=== PATIENT | male | born 1975 | race Caucasian/White ===

== ENCOUNTER 2020-12-06 03:38 | Observation (INO) ==
[2020-12-06] MEDS ORDERED: Piperacillin/Tazobactam 3.375 GM in Water for inj. (sterile) 20 ML IVP ONE (04:09)
[2020-12-06] MEDS ORDERED: 0.9 % Sodium Chloride 500 ML IVC ONE (04:11)
[2020-12-06] MEDS ORDERED: Insulin Human Regular 10 UNIT in 0.9 % Sodium Chloride 10 ML IV ONE (04:12)
[2020-12-06] MEDS: 0.9 % Sodium Chloride 1,000 ML IVC SCH ×2 (04:47→06:39)
[2020-12-06 04:57] LABS: Basophils # 0.1 K/mcL (0.0-0.2); Basophils % 0.4 %; Eosinophils # 0.1 K/mcL (0.0-0.6); Hematocrit 43.7 % (37.5-50.1); Hemoglobin 14.8 g/dL (12.9-16.9); Immature Granulocytes % 0.2 % (0-4); Lymphocytes # 2.7 K/mcL (0.6-4.6); Lymphocytes % 21.4 %; Mean Corpuscular HGB Conc 33.9 g/dL (31.6-35.5); Mean Corpuscular Hemoglobin 30.2 pg (28.0-33.3); Mean Corpuscular Volume 89.2 fL (83.0-100.0); Mean Platelet Volume 10.8 fL (9.4-12.4); Monocytes % 8.4 %; Neutrophils # 8.5 K/mcL (1.6-8.9); Platelet Count 254 K/mcL (140-400); Red Cell Distribution Width 13.4 % (11.5-14.5); Segmented Neutrophils % 68.6 %; White Blood Count 12.4 K/mcL (4.3-11.1)
[2020-12-06 05:09] LABS: INR 0.9; Prothrombin Time 10.9 Seconds (9.4-12.1)
[2020-12-06 05:12] LABS: Activated Partial Thrombo Time 30.5 Seconds (26.0-36.0)
[2020-12-06 05:16] LABS: Bilirubin,Urine Negative (Negative); Blood,Urine Negative (Negative); Clarity,Urine Clear (Clear); Color,Urine Yellow (Yellow); Glucose,Urine (UA) >=1000 mg/dL (Normal); Ketones,Urine Negative (Negative); Leukocyte Esterase,Urine Negative (Negative); Nitrite,Urine Negative (Negative); Protein,Urine Negative (Neg-Trace); Specific Gravity,Urine 1.015 (1.010-1.025); Urobilinogen,Urine Normal (Normal)
[2020-12-06 05:18] LABS: Alanine Aminotransferase 132 Units/L (7-52); Albumin 3.6 g/dL (3.5-5.7); Albumin/Globulin Ratio 1.1 (1.1-2.2); Alkaline Phosphatase 73 Units/L (34-104); Aspartate Amino Transferase 57 Units/L (13-39); BUN/Creatinine Ratio 18 (6-26); Bilirubin,Direct 0.1 mg/dL (0.0-0.2); Bilirubin,Indirect 0.5 mg/dL (0.0-1.0); Bilirubin,Total 0.6 mg/dL (0.3-1.0); Blood Urea Nitrogen 18 mg/dL (6-20); Calcium 9.2 mg/dL (8.6-10.3); Carbon Dioxide 27 mEq/L (23-29); Chloride 97 mEq/L (98-107); Globulin 3.3 g/dL (2.4-3.5); Glucose 625 mg/dL (70-105); Magnesium 1.9 mg/dL (1.6-2.6); Osmolality,Calculated 305 (280-300); Phosphorous 3.7 mg/dL (2.7-4.5); Sodium 132 mEq/L (136-145); Total Protein 6.9 g/dL (6.4-8.9); eGFR For African Americans > 60 (> 60); eGFR For Non-African Americans > 60 (> 60)
[2020-12-06 05:37] LABS: Troponin I < 0.03 ng/mL (< 0.04)
[2020-12-06] MEDS ORDERED: *HR* Dextrose 50 % in Water (Syg) 50 ML SYRINGE IVP PRN ×2 (06:31→09:58)
[2020-12-06] MEDS ORDERED: Ondansetron ODT 4 MG TAB.RAPDIS SL PRN (06:31)
[2020-12-06] MEDS ORDERED: Ibuprofen 400 MG TABLET PO PRN (06:31)
[2020-12-06] MEDS ORDERED: Dextrose Gel 15 GM/37.5 ML TUBE PO PRN ×4 (06:31→09:58)
[2020-12-06] MEDS ORDERED: D5% in Water 1,000 ML IVC PRN ×2 (06:31→09:58)
[2020-12-06] MEDS ORDERED: Naloxone 0.4 MG/ML INJ IVP PRN (06:31)
[2020-12-06] MEDS ORDERED: Insulin LISPRO 300 UNITS/3 ML VIAL SUBQ SCH (07:30)
[2020-12-06] MEDS ORDERED: *HR* Metformin 500 MG TABLET PO SCH (09:00)
[2020-12-06] MEDS: lisinopriL 20 MG TABLET PO SCH (09:38)
[2020-12-06] MEDS: Insulin LISPRO 300 UNITS/3 ML VIAL SUBQ SCH ×4 (11:11→21:00)
[2020-12-06] MEDS: Piperacillin/Tazobactam 3.375 GM in 0.9 % Sodium Chloride Mini Bag 100 ML IVPB SCH ×2 (12:29→21:00)
[2020-12-06 14:13] LABS: Estimated Average Glucose 266 mg/dl; Hemoglobin A1C 10.9 %
[2020-12-06] MEDS: *HR* HYDROcodone/Acet 5/325 mg TABLET PO PRN (16:42)
[2020-12-06 17:50] LABS: Hepatitis B Surface Antigen Nonreactive (Nonreactive)
[2020-12-06 18:21] LABS: Hepatitis B Core IgM Nonreactive (Nonreactive)
[2020-12-06 18:24] LABS: Hepatitis A Antibody IgM Nonreactive (Nonreactive)
[2020-12-06 19:46] LABS: Hepatitis C Virus Antibody Reactive (Nonreactive)
[2020-12-07] MEDS: *HR* HYDROcodone/Acet 5/325 mg TABLET PO PRN (01:32)
[2020-12-07 05:12] VITALS: RESP 18
[2020-12-07] MEDS ORDERED: *HR* Enoxaparin 40 MG/0.4 ML SYRINGE SQ SCH (06:00)
[2020-12-07] MEDS: Piperacillin/Tazobactam 3.375 GM in 0.9 % Sodium Chloride Mini Bag 100 ML IVPB SCH ×2 (06:11→13:15)
[2020-12-07] MEDS: lisinopriL 20 MG TABLET PO SCH (08:24)
[2020-12-07] MEDS: Insulin LISPRO 300 UNITS/3 ML VIAL SUBQ SCH ×3 (08:24→16:57)
[2020-12-07 08:52] LABS: Basophils # 0.1 K/mcL (0.0-0.2); Basophils % 0.5 %; Eosinophils # 0.3 K/mcL (0.0-0.6); Eosinophils % 2.1 %; Hematocrit 46.5 % (37.5-50.1); Hemoglobin 15.8 g/dL (12.9-16.9); Immature Granulocytes % 0.5 % (0-4); Lymphocytes # 3.7 K/mcL (0.6-4.6); Lymphocytes % 30.9 %; Mean Corpuscular Hemoglobin 29.9 pg (28.0-33.3); Mean Corpuscular Volume 88.1 fL (83.0-100.0); Mean Platelet Volume 10.6 fL (9.4-12.4); Monocytes # 0.9 K/mcL (0.0-1.3); Monocytes % 7.2 %; Platelet Count 260 K/mcL (140-400); Red Blood Count 5.28 M/mcL (4.19-5.50); Red Cell Distribution Width 13.3 % (11.5-14.5); Segmented Neutrophils % 58.8 %; White Blood Count 11.9 K/mcL (4.3-11.1)
[2020-12-07 09:15] LABS: BUN/Creatinine Ratio 17 (6-26); Blood Urea Nitrogen 13 mg/dL (6-20); Carbon Dioxide 25 mEq/L (23-29); Chloride 99 mEq/L (98-107); Glucose 270 mg/dL (70-105); Osmolality,Calculated 286 (280-300); Potassium 3.9 mEq/L (3.5-5.1); Sodium 133 mEq/L (136-145); eGFR For African Americans > 60 (> 60); eGFR For Non-African Americans > 60 (> 60)
[2020-12-07 23:02] VITALS: BP 117/76; PULSE 74; TEMP 97.9; O2SAT 97
== END 2020-12-07 21:40 | disposition other institution (70) ==
LOC: EMEROOPIK 03:38 → INPPIK 03:38
PROVIDERS: ADMIT Student in an Organized Health Care Education/Training Program; ATTEND Student in an Organized Health Care Education/Training Program